=== PATIENT | female | born 1945 | race African-American/Black ===

== ENCOUNTER 2021-07-04 09:41 | Emergency (ER) | payer BC ==
[~2021-07-04] VITALS: Ht 160 cm; Wt 50.0 kg
[2021-07-04 10:26] LABS: BASOPHILS % 0.8 % (0.0-2.0); EOSINOPHILS % 1.2 % (0.0-5.0); HEMATOCRIT. 39.4 % (36.0-48.0); HEMOGLOBIN. 13.6 g/dL (12.0-16.0); LYMPHOCYTES % 54.1 % (20.0-50.0); MEAN CORPUSCULAR HEMOGLOBIN 30.2 pg (28.0-32.0); MEAN CORPUSCULAR VOLUME 87.6 fL (81.0-99.0); MEAN PLATELET VOLUME 8.9 fl (7.4-10.4); MONOCYTES % 7.1 % (2.0-8.0); NEUTROPHILS % 36.8 % (40.0-76.0); PLATELET 266 x1000/uL (130-400); RED CELL DISTRIBUTION WIDTH 14.4 % (11.6-14.6)
[2021-07-04 10:32] LABS: CHLORIDE 109 mEq/L (98-107)
[2021-07-04 10:36] LABS: ETHANOL BLOOD < 10 mg/dL
[2021-07-04] MEDS ORDERED: CLOPIDOGREL 75MG TABLET PO ONE (11:15)
[2021-07-04] MEDS ORDERED: ASPIRIN 81MG TABLET PO ONE (11:15)
[2021-07-04 11:46] LABS: CLARITY URINE CLEAR (CLEAR); COLOR URINE YELLOW (YELLOW); KETONES URINE NEGATIVE (NEGATIVE); LEUKOCYTE ESTERASE URINE NEGATIVE (NEGATIVE); NITRITE URINE NEGATIVE (NEGATIVE); OCCULT BLOOD URINE NEGATIVE (NEGATIVE); PROTEIN URINE NEGATIVE (NEGATIVE); SPECIFIC GRAVITY URINE 1.037 (1.005-1.030); UROBILINOGEN URINE 0.2 E.U./dL (0.2-1.0)
[2021-07-04] MEDS ORDERED: IOHEXOL-350 100 ML BOTTLE ONE (12:04)
[2021-07-04 12:13] LABS: OPIATES URINE SCREEN NEGATIVE (NEGATIVE); PHENCYCLIDINE URINE SCREEN NEGATIVE (NEGATIVE)
[2021-07-04 12:14] LABS: *AMPHETAMINES SCREEN URINE NEGATIVE (NEGATIVE); *BARBITURATES SCREEN URINE NEGATIVE (NEGATIVE); *BENZODIAZEPINES SCREEN URINE NEGATIVE (NEGATIVE); CANNABINOID URINE SCREEN NEGATIVE (NEGATIVE); METHADONE URINE SCREEN NEGATIVE (NEGATIVE)
[2021-07-04 12:17] LABS: *COCAINE SCREEN URINE NEGATIVE (NEGATIVE)
[2021-07-04] MEDS ORDERED: HYDRALAZINE 20MG/ML VIAL IV ONE (15:15)
[2021-07-04 18:47] VITALS: BP 131/68
== END 2021-07-04 19:27 | disposition short-term general hospital (02) ==
LOC: EDBD 09:41 → ER 09:41
DX: I63.239 Cerebral infarction due to unspecified occlusion or stenosis of unspecified carotid artery (principal); R47.01 Aphasia; I10 Essential (primary) hypertension; Z20.822 Contact with and (suspected) exposure to COVID-19; I15.9 Secondary hypertension, unspecified; I44.4 Left anterior fascicular block
CPT/HCPCS: 36415; 70450; 70496; 70498; 71045; 80053; 80061; 80305; 80320; 81003; 82962; 84484; 85025; 87426; 93005; 96374; 99291; J0360; Q9967; G0480